=== PATIENT | female | born 1990 | race Caucasian/White ===

== ENCOUNTER 2016-07-08 09:42 | Outpatient (CLI) | payer OTHER ==
--- NOTE | 2016-07-08 11:35 | DIAGNOSTIC IMAGING REPORT ---
PROCEDURE: US 1ST TRIMESTER INDICATION: SIZE AND DATES TECHNIQUE: Chris scale, color, and spectral Doppler transabdominal sonographic images of the first trimester gravid uterus were obtained. COMPARISON: None. FINDINGS: TRANSABDOMINAL SCANS: The gravid uterus is anteverted in position and contains a fundal gestational sac with a moderate residual response. No perigestational hemorrhage. The cervix is closed. A pole with an average crown-rump length of 3.7 cm is present. There is detectable cardiac activity in the fetus in a rate of 167 beats per minute. A yolk sac was visible. IMPRESSION: 1. Single living intrauterine with gestational age of 10 weeks and 4 days and estimated due date of 01/30/2017 2. Closed cervix and no perigestational hemorrhage.
== END 2016-07-08 23:00 ==
LOC: US SRH 09:42
DX: Z34.81 Encounter for supervision of other normal pregnancy, first trimester (principal); Z3A.01 Less than 8 weeks gestation of pregnancy

== ENCOUNTER 2016-09-11 14:39 | Outpatient (CLI) | payer OTHER ==
--- NOTE | 2016-09-11 15:43 | DIAGNOSTIC IMAGING REPORT ---
PROCEDURE: US OB DETAILED ANATOMIC INDICATION: ANATOMY TECHNIQUE: Chris scale, color, and spectral Doppler images of the second trimester gravid uterus were obtained. COMPARISON: Ultrasound 07/08/2016 FINDINGS: A single living intrauterine is in breech presentation. There is regular cardiac activity at a rate of 140 beats per minute. The placenta is anterior and away from the internal cervical os. The cervix is closed measuring approximately 4.4 cm in length. The amniotic fluid volume is subjectively normal. Biparietal diameter 4.4 cm of 19 weeks and 1 day Head circumference 16.8 cm of 19 weeks and 3-day Abdominal circumference 14.7 cm at 20 weeks and 0-day Femur length 3.2 cm of 19 weeks and 6-day Head to abdominal circumference ratio and femur length to abdominal circumference ratios are normal. Estimated weight 319 g Composite gestational age 19 weeks and 4 days, RASHEEDA 02/01/2017 There was visualization of a number of normal structures including the intracranial contents, facial features, nuchal region, spine, four-chamber heart and outflow tracts to the extent that could be visualized, diaphragm, fluid-filled stomach, kidneys, abdomen, urinary bladder, upper and lower extremities, and genitals. A three-vessel umbilical cord, normal and placental cord insertion sites were seen. IMPRESSION: 1. Single living intrauterine with a composite gestational age of 19 weeks and 4 days, RASHEEDA 02/01/2017 2. Symmetric and normal anatomy.
== END 2016-09-11 23:00 ==
LOC: US SRH 14:39
DX: Z34.92 Encounter for supervision of normal pregnancy, unspecified, second trimester (principal); Z3A.19 19 weeks gestation of pregnancy